=== PATIENT | female | born 1990 | race Caucasian/White ===

== ENCOUNTER 2016-10-08 13:02 | Emergency (ER) | payer MEDICAID ==
[2016-10-08 13:09] VITALS: BP 129/90; PULSE 65; RESP 18; TEMP 98.2; O2SAT 98
--- NOTE | 2016-10-08 13:43 | EDPHY ---
H & P Stated Complaint: 1 WEEK R UPPER ABD AND SIDE PAIN Time Seen by Provider: 10/08/16 13:26 HPI/ROS: CHIEF COMPLAINT: right flank and upper quadrant pain x1 week HISTORY OF PRESENT ILLNESS: 26-year-old female complaining of 1 week waxing and waning right flank and right upper quadrant abdominal pain. No radiation. Pain started 2 days after starting on a progesterone only oral contraceptive. Patient states that prior history of Kita oral contraceptive resulted in acute cholecystitis. No nausea or vomiting. No urinary complaints. No vaginal bleeding or discharge. No dyspnea. No chest pain. No abdominal pain. No history of thromboembolic disorder. No dyspnea. No rash REVIEW OF SYSTEMS: A ten point review of systems was performed and is negative with the exception of the items mentioned in the HPI PAST MEDICAL & SURGICAL HISTORY: Appendectomy. Cholecystectomy. SOCIAL HISTORY: nonsmoker PHYSICAL EXAM (Prior to examination, patient consented to physical exam, hands were washed and my usual and customary physical exam procedures followed) 1) GENERAL: Well-developed, well-nourished, alert and oriented. Appears to be in no acute distress. 2) HEAD: Normocephalic, atraumatic 3) HEENT: Pupils equal, round, reactive to light bilaterally. Sclera anicteric. Nasopharynx, oropharynx, clear, no lesions. Ears bilaterally with normal tympanic membranes. 4) NECK: Full range of motion, no meningeal signs. 5) LUNGS: Clear auscultation bilaterally, no wheezes, no rhonchi, no retractions. 6) HEART: Regular rate and rhythm, no murmur, no heave, no gallop. 7) ABDOMEN: No guarding, no rebound, no focal tenderness, negative McBurney's, negative Bhandari's, negative Rovsing's, negative peritoneal sign, 8) MUSCULOSKELETAL: Moving all extremities, no focal areas of tenderness, no obvious trauma. No peripheral edema or discoloration. 9) BACK: positive right CVA tenderness, no midline vertebral tenderness, no fluctuance, no step-off, no obvious trauma, no visual or palpable abnormality. 10) SKIN: No rash, no petechiae. 11) Psychiatric: Patient is oriented X 3, there is no agitation. DIFFERENTIAL DIAGNOSIS: in no particular include but limited to pyelonephritis , PE, nephrolithiasis, Uriah Sudeep Mike - Personal History LMP (Females 10-55): 15-21 Days Ago Current Tetanus/Diphtheria Vaccine: Unsure - Medical/Surgical History Hx Asthma: No Hx Chronic Respiratory Disease: No Hx Diabetes: No Hx Cardiac Disease: No Hx Renal Disease: No Hx Cirrhosis: No Hx Alcoholism: No Hx HIV/AIDS: No Hx Splenectomy or Spleen Trauma: No Other PMH: appy, marcio, ovarian cysts - Social History Smoking Status: Never smoked Constitutional: Initial Vital Signs Temperature (C) 36.8 C 10/08/16 13:07 Heart Rate 65 10/08/16 13:07 Respiratory Rate 18 10/08/16 13:07 Blood Pressure 129/90 H 10/08/16 13:07 O2 Sat (%) 98 10/08/16 13:07 O2 Delivery Mode Room Air Allergies/Adverse Reactions: No Known Allergies Allergy (Verified 10/08/16 13:05) Home Medications: Medication Instructions Recorded Control 10/08/16 Hydrocodone/APAP 5/325 [Gallitzin 1 tab PO Q6 PRN #15 tab 10/08/16 5/325 (RX)] Ondansetron Odt [Zofran Odt] 4 mg PO Q4PRN PRN #10 tab 10/08/16 Medical Decision Making ED Course/Re-evaluation: This patient was re-evaluated with serial exams most recently at 3:45 p.m. I discussed case with Dr. Jose Barnhart in the emergency department. the patient I discussed possible etiologies for symptoms. The specific etiology of her recurrent pain is not completely clear at this time. We discussed the findings of stool at the hepatic flexure which may be responsible for her pain. When I discussed this with her she is adamant that this was not the etiology of her pain. I think that pulmonary embolus less than likely. Doubt hepatitis. The patient has no primary care provider. Notes that she has had difficulty following up with Gastroenterology. Emergency department case maker has consulted had a lengthy discussion with the patient, offered to make patient appointment the [facility] at which point she became visibly upset and stated that place is for homeless people only subsequently declined to have us make an appointment for [facility] or with a [facility] paraprofessional. - Data Points Laboratory Results: Laboratory Results 10/08/16 13:44 10/08/16 13:44 10/08/16 10/08/16 13:44 13:20 WBC 5.77 10^3/uL (3.80-9.50) RBC 5.14 10^6/uL (4.18-5.33) Hgb 14.9 g/dL (12.6-16.3) Hct 45.1 % (38.0-47.0) MCV 87.7 fL (81.5-99.8) MCH 29.0 pg (27.9-34.1) MCHC 33.0 g/dL (32.4-36.7) RDW 13.6 % (11.5-15.2) Plt Count 225 10^3/uL (150-400) MPV 10.5 fL (8.7-11.7) Neut % (Auto) 71.3 % (39.3-74.2) Lymph % (Auto) 20.8 % (15.0-45.0) Amite % (Auto) 5.4 % (4.5-13.0) Eos % (Auto) 1.9 % (0.6-7.6) Baso % (Auto) 0.3 % (0.3-1.7) Nucleat RBC Rel Count 0.0 % (0.0-0.2) Absolute Neuts (auto) 4.11 10^3/uL (1.70-6.50) Absolute Lymphs (auto) 1.20 10^3/uL (1.00-3.00) Absolute Monos (auto) 0.31 10^3/uL (0.30-0.80) Absolute Eos (auto) 0.11 10^3/uL (0.03-0.40) Absolute Basos (auto) 0.02 10^3/uL (0.02-0.10) Absolute Nucleated RBC 0.00 10^3/uL (0-0.01) Immature Gran % 0.3 % (0.0-1.1) Immature Gran # 0.02 10^3/uL (0.00-0.10) D-Dimer < 0.27 ug/mLFEU (0.00-0.50) Sodium 141 mEq/L (134-144) Potassium 4.0 mEq/L (3.5-5.2) Chloride 103 mEq/L (97-110) Carbon Dioxide 28 mEq/l (22-31) Anion Gap 10 mEq/L (8-16) BUN 14 mg/dL (7-23) Creatinine 0.8 mg/dL (0.6-1.0) Estimated GFR > 60 Glucose 87 mg/dL (70-100) Calcium 8.8 mg/dL (8.5-10.4) Total Bilirubin 0.8 mg/dL (0.1-1.4) Conjugated Bilirubin 0.1 mg/dL (0.0-0.5) Unconjugated Bilirubin 0.7 mg/dL (0.0-1.1) AST 20 IU/L (14-46) ALT 33 IU/L (9-52) Alkaline Phosphatase 36 L IU/L (38-126) Total Protein 7.4 g/dL (6.3-8.2) Albumin 4.5 g/dL (3.5-5.0) Lipase 46.0 IU/L (23-300) Beta HCG, Qual NEGATIVE Urine Color YELLOW Urine Appearance CLEAR Urine pH 6.0 (5.0-7.5) Ur Specific Rincon 1.021 (1.002-1.030) Urine Protein NEGATIVE (NEGATIVE) Urine Ketones NEGATIVE (NEGATIVE) Urine Blood NEGATIVE (NEGATIVE) Urine Nitrate NEGATIVE (NEGATIVE) Urine Bilirubin NEGATIVE (NEGATIVE) Urine Urobilinogen NEGATIVE EU (0.2-1.0) Ur Leukocyte Esterase NEGATIVE (NEGATIVE) Urine RBC 1-3 /hpf (0-3) Urine WBC 1-3 /hpf (0-3) Ur Epithelial Cells TRACE /lpf (NONE-1+) Urine Mucus TRACE /lpf (NONE-1+) Urine Glucose NEGATIVE (NEGATIVE) Medications Given: Discontinued Medications Hydromorphone HCl (Dilaudid) 1 mg IVP EDNOW ONE Stop: 10/08/16 14:21 Last Admin: 10/08/16 14:30 Dose: 1 mg Ketorolac Tromethamine (Toradol) 30 mg IVP EDNOW ONE Stop: 10/08/16 14:21 Last Admin: 10/08/16 14:29 Dose: 30 mg Ondansetron HCl (Zofran) 4 mg IVP EDNOW ONE Stop: 10/08/16 14:21 Last Admin: 10/08/16 14:29 Dose: 4 mg Ondansetron HCl (Zofran) 4 mg IVP EDNOW ONE Stop: 10/08/16 15:24 Last Admin: 10/08/16 15:27 Dose: 4 mg Departure - Departure Disposition: Home, Routine, Self-Care Clinical Impression: Right flank pain Condition: Good Instructions: Flank Pain (ED) Additional Instructions: [address] [facility] [id number] Call [facility] and make a follow-up appointment to establish a primary care provider. If they feel a specialist referral is needed, they should be able to assist you with obtaining a specialist consult. Otherwise you can contact the referred GI specialist listed above (make sure to tell them you were seen and referred from our Emergency Department), and they should make an appointment for you within a reasonable time. Referrals: [facility] [Outside] - 1-2 days without fail Rebecca Pastrana MD [Medical Doctor] - 1-2 days without fail (Dr Pastrana is a [employer] paraprofessional) Prescriptions: Hydrocodone/APAP 5/325 [Gallitzin 5/325 (RX)] 1 tab PO Q6 PRN #15 tab PRN Reason: Pain, Severe Ondansetron Odt [Zofran Odt] 4 mg PO Q4PRN PRN #10 tab PRN Reason: Nausea
[2016-10-08 13:54] LABS: COLOR YELLOW; LEUKOCYTE ESTERASE,URINE NEGATIVE (NEGATIVE); NITRITE,URINE NEGATIVE (NEGATIVE)
[2016-10-08 13:55] LABS: MUCUS TRACE /lpf (NONE-1+)
[2016-10-08 13:59] LABS: % IMMATURE GRANULYOCYTES 0.3 % (0.0-1.1); ABSOLUTE IMMATURE GRANULOCYTES 0.02 10^3/uL (0.00-0.10); ADD DIFF? NO; ADD MORPH? NO; ADD SCAN? NO; ATYPICAL LYMPHOCYTE FLAG 0 (0-99); FRAGMENT RBC FLAG 0 (0-99); HEMATOCRIT 45.1 % (38.0-47.0); HEMOGLOBIN 14.9 g/dL (12.6-16.3); LEFT SHIFT FLG 0 (0-99); LIPEMIA HEMOLYSIS FLAG 80 (0-99); MEAN CELL VOLUME 87.7 fL (81.5-99.8); MEAN PLATELET VOLUME 10.5 fL (8.7-11.7); PLATELET CLUMPS FLAG 0 (0-99); PLATELET COUNT 225 10^3/uL (150-400); RED BLOOD CELL COUNT 5.14 10^6/uL (4.18-5.33); RED CELL DISTRIBUTION WIDTH 13.6 % (11.5-15.2)
[2016-10-08 14:12] LABS: ALANINE AMINOTRANSFERASE 33 IU/L (9-52); ALBUMIN 4.5 g/dL (3.5-5.0); ALKALINE PHOSPHATASE 36 IU/L (38-126); ANION GAP 10 mEq/L (8-16); ASPARTATE AMINOTRANSFERASE 20 IU/L (14-46); BILIRUBIN,TOTAL 0.8 mg/dL (0.1-1.4); BILIRUBIN-CONJUGATED 0.1 mg/dL (0.0-0.5); BILIRUBIN-UNCONJUGATED 0.7 mg/dL (0.0-1.1); CALCIUM 8.8 mg/dL (8.5-10.4); CARBON DIOXIDE 28 mEq/l (22-31); CHLORIDE 103 mEq/L (97-110); CREATININE 0.8 mg/dL (0.6-1.0); GLOMERULAR FILTRATION RATE > 60; GLUCOSE 87 mg/dL (70-100); SODIUM 141 mEq/L (134-144); TOTAL PROTEIN 7.4 g/dL (6.3-8.2)
[2016-10-08] MEDS ORDERED: HYDROmorphONE/DILAUDID 1 MG/ML SYR IVP ONE (14:20)
[2016-10-08] MEDS ORDERED: ONDANSETRON 4 MG/2 ML VIAL IVP ONE ×2 (14:20→15:23)
[2016-10-08] MEDS ORDERED: KETOROLAC 30 MG/1 ML SDV IVP ONE (14:20)
[2016-10-08] MEDS ORDERED: ONDANSETRON 4 MG/2 ML VIAL ONE (15:18)
--- NOTE | 2016-10-08 15:19 | CT ---
CT Abdomen and Pelvis (Without Contrast) at 1448 hours History: Right flank pain. Technique: Spiral images were acquired from the upper abdomen through the pelvis without intravenous or oral contrast which limits the study. Dose reduction techniques were utilized. Findings: Abdomen: Bilateral kidneys demonstrate no nephrolithiasis or hydronephrosis. Gallbladder surgically a bsent with clips in the gallbladder fossa. No pleural effusion. No hepatosplenomegaly or ascites. Mod erate stool throughout the colon. No aortic aneurysm or significant adenopathy. No bowel obstruction. Pelvis: No evidence of distal ureteral calculi, hydroureter or bladder calculi. Surgical clips in th e region of the appendix consistent with prior appendectomy. No definite adnexal masses. Impression: 1. No nephrolithiasis or hydronephrosis. 2. Prior cholecystectomy and appendectomy. 3. Mild constipation. Attention: This CT examination is specifically designed to evaluate patients who are clinically susp ected of having acute obstructive uropathy. This examination does not use radiographic contrast, and as such, provides only a limited evaluation of the abdomen, pelvis and retroperitoneum. If there is further clinical suspicion for pathological conditions other than obstructive uropathy, a complete C T evaluation of the abdomen and pelvis utilizing intravenous, oral, and rectal contrast should be con sidered. Findings and recommendations discussed with Emergency Department physician, Marlo Kelley PA-C at 151 5 hour, today. Final report concurs with initial preliminary interpretation.
== END 2016-10-08 16:00 | disposition home or self-care (01) ==
DX: R10.9 Unspecified abdominal pain (principal); Z90.49 Acquired absence of other specified parts of digestive tract
CPT/HCPCS: 96374; J1170; J1885; J2405

== ENCOUNTER 2018-11-07 09:45 | Emergency (ER) | payer MEDICAID ==
--- NOTE | 2018-11-07 10:50 | EDPHY ---
General - History Smoking Status: Never smoked Time Seen by Provider: 11/07/18 10:30 Narrative: CLINICAL IMPRESSION: Right thigh muscle strain, syncope ASSESSMENT/PLAN: Patient is a 28-year-old female with a significant medical history of PTSD and chronic abdominal pain who presents with a single episode of syncope. Patient is afebrile and nontoxic appearing, in no acute distress on arrival. Vital signs reviewed and remained stable, patient remained on cardiac specialist and was observed for a period of time. BGL 89 with no evidence of hypoglycemia. CBC with no evidence of anemia or infectious process BMP with no metabolic abnormalities or evidence of renal insufficiency. Preg negative. Perc negative , do not suspect PE. ECG with no evidence if bradycardia, sinus pause, SVT or other conduction defect- reviewed by myself and Dr. Ahumada. Negative orthostatic hypotension while in the ED. Patient recently started prazosin for treatment of her PTSD, has taken 5 doses and I suspect that her syncopal episode is secondary to the addition of prazosin. There were no findings to suggest sepsis, vascular disease, CHF, arrhythmia (WPW, Bruggada Syndrome, prolonged QT, ventricular arrhythmia, SVT, bradyarrhythmia, or cardiac outflow obstruction- no murmur and not exertional in nature). There were no red flag symptoms, specifically, not exertional onset, no chest pain, dyspnea, low back pain, palpitations, severe headache, focal neurologic deficits, diplopia, ataxia , or dysarthria. I have a low clinical suspicion for other central nervous system etiology. In regards to her right thigh pain, she is tender along the mid quadriceps, no findings to suggest compartment syndrome, DVT or neurovascular compromise. Pain occurred after running, I suspect that this is muscle strain. Patient is well established with her PCP and will schedule a follow-up appointment for repeat examination, recommend not taking the prazosin until follow-up. Strict return precautions discussed- patient will return for recurrent syncope, headache, dizziness, chest pain, shortness of breath, abdominal pain or for any other concerning symptom. Patient verbalizes understanding and is in agreement with this plan. Etiology of syncope including but not limited to vasovagal syncope, arrhythmia, dehydration, and blood loss. DIFFERENTIAL DX: Syncope including but not limited to vasovagal syncope, arrhythmia, dehydration , and blood loss. ED COURSE: CHIEF COMPLAINT: Right thigh pain, syncopal episode HPI: Patient is a 28-year-old female with a significant history of chronic abdominal pain, PTSD and attention deficit hyperactivity disorder who presents to the emergency department with complaints of right thigh pain and syncopal episode. Patient reports yesterday after running to her car she experienced mid right thigh pain. She felt that it was muscular in nature, has been applying heat and cold without much relief. She denies any impact injury, fall or trauma. In addition patient complains of syncopal episode she sustained at approximately 7:30 a.m. This morning. Patient recently started on prazosin secondary to PTSD. Strict instructions have been followed with sitting for extended. Prior to standing. Patient stood up and walked to her dresser when she experienced a feeling of dizziness and subsequently a syncopal episode. She found herself in a seated position when she awoke, did not hit her head. She denies any headache, dizziness, nausea, vomiting, chest pain or shortness of breath. She denied any chest pain or shortness of breath at the time of the event. No history of syncopal episodes. She denies any recent fever or illness. PMH: PTSD, attention deficit hyperactivity disorder, chronic abdominal pain and nausea Pertinent Past Surgical History: Denies Family History: Noncontributory Social History: Occasional alcohol, denies smoking REVIEW OF SYSTEMS: All other systems negative Constitutional: No fever, no chills, appetite change. Eyes: No discharge, vision change ENT: No sore throat, congestion, ear pain. Cardiovascular: No chest pain, no palpitations. Respiratory: No cough, no shortness of breath. Gastrointestinal: Chronic abdominal pain at her baseline, no vomiting or diarrhea. Genitourinary: No hematuria, dysuria, flank pain, pelvic pain Musculoskeletal: Right thigh pain. No back pain, joint swelling, joint pain, myalgias. Skin: No rashes, color change. Neurological: Syncope. No headache, dizziness, weakness. PHYSICAL EXAM: General Appearance: Well-appearing, no acute distress. HENT: Normocephalic, atraumatic. Bilateral external ears are normal. Bilateral tympanic membranes are normal with pearly cm reflex. Nares are clear, mucosa is pink. Oropharynx is clear, uvula is midline. There is no tonsillar enlargement or exudate. The dentition is normal. Eyes: PERRLA, no acute vision change, nystagmus, swelling, discharge, pain or photosensitivity. Conjunctiva pink, no pallor or injection Neck: Supple, nontender, no lymphadenopathy, no midline pain, FROM, no meningismus. Respiratory: There are no retractions, lungs are clear to auscultation. Cardiac: Regular rate and rhythm, no murmurs or gallops. Gastrointestinal: Abdomen is soft, nontender on my exam, bowel sounds normal, no masses/hernia, no rigidity, guarding or focal peritoneal findings. Neurological: MENTAL STATUS: Patient is alert and oriented to person, place, time, and situation. Recent and remote memory are intact. Attention and concentration are normal. Found knowledge is appropriate to level of education. Mood and affect normal. SPEECH: Language including naming, repetition, comprehension, and spontaneous speech are normal. No dysarthria or dysphagia. CRANIAL NERVES: II: Visual soto are full to confrontation. Vision is grossly intact. III, IV, : Pupils are equal, round, reactive to light. Extraocular eye movements are full and without nystagmus. V: Facial sensation is intact to touch symmetrically in all 3 divisions. VII: Face is symmetric at rest with no asymmetry of grimace or evidence of facial weakness. VIII: Hearing is intact bilaterally to finger rub. IX, X: Palate is midline and elevates symmetrically with intact cough/gag. XI: Sternocleidomastoid and trapezius strength is normal. XII: Tongue protrudes midline without atrophy or fasciculations. MOTOR: Normal bulk and tone symmetrically in the upper and lower extremities. Upper extremities: shoulder abduction, elbow flexion, elbow extension, flexion of fingers and finger abduction strength 5/5 bilaterally. Lower extremities: hip flexion, knee flexion and extension, plantar and dorsiflexion of foot, and great toe extension strength 5/5 bilaterally. No pronator drift. SENSORY: Sensation is intact to light touch and symmetric in the UE's in LE's bilaterally. Romberg is negative. COORDINATION: Fine motor and rapid alternating movements are normal. Finger to nose is normal bilaterally. [id number] is normal bilaterally. No abnormal movements noted. There is no tremor at rest or with posture or action. GAIT/STATION: Casual, straightforward gait is normal. Patient can walk on toes and on heels. No gait instability. Skin: Warm, dry, no rashes, no nodules on palpation. Musculoskeletal: Extremities are symmetrical, full range of motion, no tenderness, deformity, swelling, or erythema. Psychiatric: Patient is oriented X 3, there is no agitation. MEDICAL DECISION MAKING: Patient was seen independently. Secondary supervising physician at time of evaluation was Dr. Ahumada. Diagnosis: Right thigh muscle strain, syncopal episode. New, requires workup Summary: See Assessment and Plan for summary of ED visit Clinical lab tests: ordered / reviewed. Independent visualization of images, tracing, or specimens: Yes. Decision to obtain medical records or history from someone other than the patient: No Review / Summarize previous medical records: Yes Discussed patient with another provider: Yes, Dr. Ahumada Patient Progress: Stable, discharged. (Linda Estrada) Medical Decision Making: I did not see this patient while she was in the emergency department. However her care was discussed with the PA while the patient was in the department. I agree with treatment plan and management (David Ahumada) - Diagnostics EKG Interpretation: EKG interpreted by me shows normal sinus rhythm normal interval and axis. QRS is normal there is no significant ST elevation or depression. No arrhythmia. The rate is 70 (David Ahumada) - Objective Vital Signs: Initial Vital Signs Temperature (C) 36.8 C 11/07/18 09:52 Heart Rate 94 11/07/18 09:52 Respiratory Rate 18 11/07/18 09:52 Blood Pressure 144/99 H 11/07/18 09:52 O2 Sat (%) 96 11/07/18 09:52 O2 Delivery Mode Room Air Allergies/Adverse Reactions: No Known Allergies Allergy (Verified 11/07/18 09:52) Home Medications: Medication Instructions Recorded Adderall 10 MG (*) 11/07/18 Prazosin HCl 11/07/18 Laboratory Results: Laboratory Results 11/07/18 10:58 11/07/18 10:58 Departure - Departure Disposition: Home, Routine, Self-Care Clinical Impression: Syncope, Muscle strain Condition: Good Instructions: Muscle Strain (ED), Syncope (ED) Additional Instructions: DISCHARGE INSTRUCTIONS FROM YOUR DOCTOR Thank you for visiting our emergency department today. Please keep in mind that discharge from the emergency department does not mean that there is nothing wrong - it simply means that we have not identified an emergency condition that requires further evaluation or treatment in the hospital. You should always plan to follow up with primary care for re-evaluation of your condition in the next 2-3 days. Your workup in the emergency department today was very reassuring. I suspect that your fainting episode is secondary to your new medication. I would not take this medication until you follow up with your primary care provider for repeat examination. In regards to your thigh pain I suspect this is muscular in nature. Apply ice or heat, whichever 1 feels better. You may take Tylenol, I recommend 500-1000 mg every 6-8 hours as needed. Take with food and a full glass of water. Stop taking if this is upsetting her stomach. Do not exceed 4000 mg in a 24 hr period. You may also take ibuprofen, recommend 400 mg every 6 hr. Take with food and a full glass of water. Stop taking if this upsets her stomach. Do not exceed 2400 mg in a 24 hr period. Return for increased or unmanageable pain, new injury, new midline back pain, numbness, tingling, weakness of your legs, loss of bowel or bladder control, inability to urinate, burning or pain with urination, blood in the urine, fever , chills, abdominal pain, vomiting, difficulty walking, dizziness, fainting, chest pain, shortness of breath, neck pain, neck stiffness, other site of back pain, calf pain, leg redness or swelling, or for any other new, worsening or worrisome symptoms. People present with illnesses and injuries in different ways, and it is always possible that we have missed something. You may always return for re-evaluation if symptoms worsen or if they are not improving or if you develop new/different symptoms. Again, thank you for choosing our emergency department. We hope that you feel better. Referrals: NONE *PRIMARY CARE P,. [Primary Care Provider] - 2-3 days, call for appt. ( Please follow-up with your primary care provider)
[2018-11-07 11:08] VITALS: BP 132/87
[2018-11-07 11:17] LABS: PLATELET COUNT 195 10^3/uL (150-400)
--- NOTE | 2018-11-07 15:04 | CPEKG ---
Test Reason : OPEN Blood Pressure : / mmHG Vent. Rate : 070 BPM Atrial Rate : 068 BPM P-R Int : 142 ms QRS Dur : 087 ms QT Int : 382 ms P-R-T Axes : 052 064 042 degrees QTc Int : 413 ms Sinus rhythm Confirmed by Kirti Ahumada ([id number]) on 11/07/2018 3:03:52 PM Referred By: KIRTI AHUMADA Confirmed By:Kirti Ahumada
== END 2018-11-07 12:01 | disposition home or self-care (01) ==
DX: S86.811A Strain of other muscle(s) and tendon(s) at lower leg level, right leg, initial encounter (principal); R55 Syncope and collapse; X50.3XXA Overexertion from repetitive movements, initial encounter; Y92.9 Unspecified place or not applicable; Y99.9 Unspecified external cause status; Y93.02 Activity, running